=== PATIENT | female | born 1970 | race African-American/Black ===

== ENCOUNTER 2021-12-06 05:43 | Inpatient (IN) ==
[2021-12-06 06:53] LABS: INR 0.9; PT Patient Result 10.4 SECS (10.1-12.1)
[2021-12-06] MEDS ORDERED: SODIUM CHLORIDE 0.45% 1,000 ML IV SCH (07:00)
[2021-12-06] MEDS ORDERED: DIAZEPAM 5 MG TABLET PO ONE (08:30)
[2021-12-06] MEDS: SODIUM CHLORIDE 0.45% 500 ML IV SCH (08:33)
[2021-12-06] MEDS ORDERED: LEVOFLOXACIN INJ 500 MG/100 ML PREMIX IV ONE (09:00)
[2021-12-06] MEDS ORDERED: MIDAZOLAM 2 MG/2 ML VIAL ONE ×2 (10:31→11:52)
[2021-12-06] MEDS ORDERED: fentaNYL 100 MCG/2 ML VIAL ONE (10:31)
[2021-12-06] MEDS ORDERED: diphenhydrAMINE 50 MG/1 ML VIAL IV ONE (10:55)
[2021-12-06] MEDS ORDERED: diphenhydrAMINE 50 MG/1 ML VIAL ONE (10:55)
[2021-12-06] MEDS ORDERED: VANCOMYCIN 1,000 MG VIAL ONE (10:57)
[2021-12-06] MEDS ORDERED: MIDAZOLAM 2 MG/2 ML VIAL IV ONE (11:15)
[2021-12-06] MEDS ORDERED: fentaNYL 100 MCG/2 ML VIAL IV ONE (11:17)
[2021-12-06] MEDS ORDERED: VANCOMYCIN INJ 1,000 MG in SODIUM CHLORIDE 0.9% 250 ML IV ONE (11:58)
[2021-12-06] MEDS ORDERED: ONDANSETRON 4 MG/2 ML VIAL IV STA (13:41)
[2021-12-06] MEDS ORDERED: ONDANSETRON 4 MG/2 ML VIAL ONE (13:42)
[2021-12-06] MEDS ORDERED: KETOROLAC 30 MG/1 ML VIAL IM STA (14:01)
[2021-12-06] MEDS ORDERED: SODIUM CHLORIDE 0.9% 500 ML IV ONE (14:58)
[2021-12-06] MEDS ORDERED: diphenhydrAMINE 50 MG/1 ML VIAL IV PRN (16:14)
[2021-12-06] MEDS ORDERED: ONDANSETRON 4 MG/2 ML VIAL IV PRN (16:14)
[2021-12-06] MEDS: SODIUM CHLORIDE 0.9% 1,000 ML IV SCH (16:40)
[2021-12-06] MEDS: cefTRIAXone 1,000 MG in SODIUM CHLORIDE 0.9% 100 ML IV SCH (17:45)
[2021-12-06] MEDS: ACETAMINOPHEN 325 MG TABLET PO SCH ×2 (17:45→22:46)
[2021-12-06] MEDS: oxyCODONE/ACETAMINOPHEN 5-325 MG TABLET PO PRN (17:46)
[2021-12-06] MEDS: SIMETHICONE CHEW 125 MG TABLET PO SCH ×2 (17:46→21:28)
[2021-12-06 18:02] LABS: Basophils % 0.2 % (0.0-0.8); Hematocrit 32.4 VOL% (35.7-47.0); Hemoglobin 10.8 GM/DL (12.0-16.0); Immature Granulocytes % 0.6 %; Immature Granulocytes Absolute 0.08 #; Lymphocytes # 0.5 10*3/uL (1.4-4.0); Lymphocytes % 3.1 % (21.3-54.2); Mean Corpuscular HGB Conc 33.3 GM/DL (32-36); Mean Corpuscular Volume 93.4 FL (87-102); Mean Platelet Volume 9.4 FL (9.6-12.0); Monocytes # 0.4 10*3/uL (0.11-0.8); Monocytes % 2.7 % (1.7-12.7); Neutrophils % 93.4 % (38.7-73.9); Platelet Count 259 T/CUMM (130-400); Red Blood Count 3.47 MC/CUMM (3.8-5.5); Red Cell Distribution Width 13.4 % (9.3-17.3); White Blood Count 14.4 T/CUMM (4-12)
[2021-12-06 18:23] LABS: Band Neutrophils 5 % (0-10); Lymphocytes 5 % (20-55); Total Cells Counted 100
[2021-12-06 18:24] LABS: Platelet Estimate Adequate
[2021-12-06 19:13] LABS: Calcium 7.8 MG/DL (8.5-10.1); Osmolality,Calculated 283.3 MOS/KG (273-304); Potassium 2.7 MMOL/L (3.5-5.1)
[2021-12-06 19:24] LABS: Calcium 8.4 MG/DL (8.5-10.1); Carbon Dioxide 28 MMOL/L (21-32); Chloride 104 MMOL/L (98-107); Glucose 162 MG/DL (74-106); Sodium 140 MMOL/L (136-145)
[2021-12-06 19:45] LABS: Blood Urea Nitrogen 18 MG/DL (7-18); Osmolality,Calculated 284.4 MOS/KG (273-304)
[2021-12-06] MEDS: ANASTROZOLE 1 MG TABLET PO SCH (21:28)
[2021-12-06] MEDS: DOCUSATE SODIUM 100 MG CAPSULE PO SCH (21:28)
[2021-12-06] MEDS ORDERED: MAGNESIUM SULF RIDER 2 GM/50 ML PREMIX IV PRN (21:54)
[2021-12-06] MEDS ORDERED: MAGNESIUM SULF RIDER 4 GM/100 ML PREMIX IV PRN (21:54)
[2021-12-07] MEDS: SODIUM CHLORIDE 0.9% 1,000 ML IV SCH ×3 (01:08→20:44)
[2021-12-07] MEDS: ACETAMINOPHEN 325 MG TABLET PO SCH ×3 (05:14→18:06)
[2021-12-07] MEDS: oxyCODONE/ACETAMINOPHEN 5-325 MG TABLET PO PRN ×2 (05:24→12:23)
[2021-12-07 05:49] LABS: Basophils # 0.1 10*3/uL (0.0-0.2); Basophils % 0.4 % (0.0-0.8); Eosinophils # 0.1 10*3/uL (0.0-0.87); Eosinophils % 0.7 % (0.00-10.9); Immature Granulocytes % 0.6 %; Lymphocytes # 0.8 10*3/uL (1.4-4.0); Lymphocytes % 4.8 % (21.3-54.2); Mean Corpuscular HGB Conc 32.4 GM/DL (32-36); Mean Corpuscular Volume 93.7 FL (87-102); Mean Platelet Volume 9.3 FL (9.6-12.0); Monocytes # 1.3 10*3/uL (0.11-0.8); Monocytes % 7.9 % (1.7-12.7); Neutrophils % 85.6 % (38.7-73.9); Platelet Count 258 T/CUMM (130-400); Red Blood Count 3.63 MC/CUMM (3.8-5.5); Red Cell Distribution Width 13.5 % (9.3-17.3); White Blood Count 16.2 T/CUMM (4-12)
[2021-12-07 06:16] LABS: Calcium 8.9 MG/DL (8.5-10.1); Osmolality,Calculated 281.4 MOS/KG (273-304); Potassium 3.1 MMOL/L (3.5-5.1)
[2021-12-07 06:17] LABS: Lymphocytes 10 % (20-55); Platelet Estimate Adequate; Total Cells Counted 100
[2021-12-07] MEDS ORDERED: POTASSIUM CHLORIDE 20 MEQ TABLET PO ONE (06:44)
[2021-12-07] MEDS ORDERED: MAGNESIUM SULF RIDER 4 GM/100 ML PREMIX IV PRN (07:19)
[2021-12-07] MEDS ORDERED: MAGNESIUM SULF RIDER 2 GM/50 ML PREMIX IV PRN (07:19)
[2021-12-07] MEDS: SODIUM CHLORIDE 0.45% 500 ML IV SCH (08:33)
[2021-12-07] MEDS: DOCUSATE SODIUM 100 MG CAPSULE PO SCH ×2 (09:02→20:42)
[2021-12-07] MEDS: SIMETHICONE CHEW 125 MG TABLET PO SCH ×4 (09:02→20:42)
[2021-12-07] MEDS: OLMESARTAN 20 MG TABLET PO SCH (15:14)
[2021-12-07] MEDS: cefTRIAXone 1,000 MG in SODIUM CHLORIDE 0.9% 100 ML IV SCH (18:07)
[2021-12-07] MEDS: ANASTROZOLE 1 MG TABLET PO SCH (20:42)
[2021-12-08] MEDS: ACETAMINOPHEN 325 MG TABLET PO SCH ×4 (00:06→17:02)
[2021-12-08] MEDS: SIMVASTATIN 10 MG TABLET PO SCH ×2 (00:06→20:32)
[2021-12-08] MEDS: HYDROmorphone 1 MG/1 ML SYRINGE IV PRN ×2 (00:12→20:32)
[2021-12-08] MEDS: SODIUM CHLORIDE 0.9% 1,000 ML IV SCH ×4 (05:45→16:18)
[2021-12-08 05:48] LABS: Basophils # 0.1 10*3/uL (0.0-0.2); Basophils % 0.5 % (0.0-0.8); Eosinophils # 0.2 10*3/uL (0.0-0.87); Eosinophils % 1.8 % (0.00-10.9); Hematocrit 33.1 VOL% (35.7-47.0); Hemoglobin 10.7 GM/DL (12.0-16.0); Immature Granulocytes % 0.4 %; Immature Granulocytes Absolute 0.04 #; Lymphocytes # 1.4 10*3/uL (1.4-4.0); Lymphocytes % 13.6 % (21.3-54.2); Mean Corpuscular HGB Conc 32.3 GM/DL (32-36); Mean Corpuscular Volume 95.1 FL (87-102); Monocytes % 10.4 % (1.7-12.7); Neutrophils % 73.3 % (38.7-73.9); Platelet Count 242 T/CUMM (130-400); Red Blood Count 3.48 MC/CUMM (3.8-5.5); Red Cell Distribution Width 13.7 % (9.3-17.3)
[2021-12-08 06:11] LABS: Calcium 8.3 MG/DL (8.5-10.1); Osmolality,Calculated 273.5 MOS/KG (273-304); Potassium 3.3 MMOL/L (3.5-5.1)
[2021-12-08] MEDS: OLMESARTAN 20 MG TABLET PO SCH (08:50)
[2021-12-08] MEDS: SIMETHICONE CHEW 125 MG TABLET PO SCH ×5 (08:50→20:32)
[2021-12-08] MEDS: DOCUSATE SODIUM 100 MG CAPSULE PO SCH ×2 (08:50→20:32)
[2021-12-08] MEDS ORDERED: POTASSIUM CHLORIDE 20 MEQ TABLET PO ONE (09:00)
[2021-12-08] MEDS ORDERED: OLMESARTAN 20 MG TABLET PO ONE (15:00)
[2021-12-08] MEDS: cefTRIAXone 1,000 MG in SODIUM CHLORIDE 0.9% 100 ML IV SCH (17:02)
[2021-12-08] MEDS: CALCIUM CARBONATE CHEW 500 MG TABLET PO PRN (19:14)
[2021-12-08] MEDS: ANASTROZOLE 1 MG TABLET PO SCH (20:32)
[2021-12-09] MEDS: SODIUM CHLORIDE 0.9% 1,000 ML IV SCH ×2 (00:10→10:19)
[2021-12-09] MEDS: ACETAMINOPHEN 325 MG TABLET PO SCH ×3 (01:09→04:47)
[2021-12-09] MEDS: CALCIUM CARBONATE CHEW 500 MG TABLET PO PRN (03:53)
[2021-12-09 05:57] LABS: Calcium 8.5 MG/DL (8.5-10.1); Osmolality,Calculated 278.3 MOS/KG (273-304)
[2021-12-09 06:40] LABS: Basophils % 0.4 % (0.0-0.8); Eosinophils # 0.1 10*3/uL (0.0-0.87); Eosinophils % 0.7 % (0.00-10.9); Hematocrit 33.1 VOL% (35.7-47.0); Hemoglobin 10.8 GM/DL (12.0-16.0); Immature Granulocytes % 0.5 %; Immature Granulocytes Absolute 0.05 #; Lymphocytes # 1.5 10*3/uL (1.4-4.0); Lymphocytes % 14.7 % (21.3-54.2); Mean Corpuscular HGB Conc 32.6 GM/DL (32-36); Mean Corpuscular Volume 94.3 FL (87-102); Mean Platelet Volume 10.2 FL (9.6-12.0); Monocytes # 1.1 10*3/uL (0.11-0.8); Monocytes % 11.3 % (1.7-12.7); Neutrophils % 72.4 % (38.7-73.9); Platelet Count 235 T/CUMM (130-400); Red Blood Count 3.51 MC/CUMM (3.8-5.5); Red Cell Distribution Width 13.5 % (9.3-17.3); White Blood Count 10.1 T/CUMM (4-12)
[2021-12-09] MEDS: DOCUSATE SODIUM 100 MG CAPSULE PO SCH (08:57)
[2021-12-09] MEDS ORDERED: OLMESARTAN 20 MG TABLET PO SCH (09:00)
[2021-12-09 09:07] VITALS: BP 154/78
[2021-12-09] MEDS: SIMETHICONE CHEW 125 MG TABLET PO SCH (10:19)
== END 2021-12-09 11:06 | disposition home or self-care (01) | DRG 690 ==
LOC: N.RAD 05:43 → N.5E 05:43 → N.SDSINP 05:45 → N.5E 16:18
PROVIDERS: ADMIT Surgery; ATTEND Surgery

== ENCOUNTER 2021-12-19 09:29 | Inpatient (IN) ==
[2021-12-04 10:42] LABS: Basophils # 0.1 10*3/uL (0.0-0.2); Basophils % 0.7 % (0.0-0.8); Eosinophils # 0.2 10*3/uL (0.0-0.87); Eosinophils % 2.2 % (0.00-10.9); Hematocrit 38.6 VOL% (35.7-47.0); Hemoglobin 12.7 GM/DL (12.0-16.0); Immature Granulocytes % 0.1 %; Immature Granulocytes Absolute 0.01 #; Lymphocytes # 1.9 10*3/uL (1.4-4.0); Lymphocytes % 27.9 % (21.3-54.2); Mean Corpuscular HGB Conc 32.9 GM/DL (32-36); Mean Corpuscular Volume 93.7 FL (87-102); Mean Platelet Volume 8.8 FL (9.6-12.0); Monocytes # 0.6 10*3/uL (0.11-0.8); Monocytes % 8.3 % (1.7-12.7); Neutrophils % 60.8 % (38.7-73.9); Platelet Count 365 T/CUMM (130-400); Red Blood Count 4.12 MC/CUMM (3.8-5.5); Red Cell Distribution Width 13.3 % (9.3-17.3)
[2021-12-04 11:19] LABS: Albumin 3.9 G/DL (3.4-5.0); Bilirubin,Total 0.5 MG/DL (0.20-1.00); Calcium 9.9 MG/DL (8.5-10.1); Osmolality,Calculated 273.7 MOS/KG (273-304); Potassium 3.6 MMOL/L (3.5-5.1); Total Protein 7.8 G/DL (6.4-8.2)
[~2021-12-19 09:29] MED LIST: cefTRIAXone 1,000 MG VIAL ONE; cefTRIAXone 1,000 MG in SODIUM CHLORIDE 0.9% 100 ML IV ONE
[2021-12-19] MEDS ORDERED: DIAZEPAM 5 MG TABLET PO ONE (10:37)
[2021-12-19] MEDS ORDERED: SCOPOLAMINE 1.5 MG PATCH TRANSDERM ONE (10:37)
[2021-12-19] MEDS ORDERED: FAMOTIDINE 20 MG TABLET PO ONE (10:37)
[2021-12-19] MEDS ORDERED: LACTATED RINGERS 1,000 ML IV SCH ×2 (11:00→18:00)
[2021-12-19] MEDS ORDERED: LORazepam 0.5 MG TABLET ONE (13:53)
[2021-12-19] MEDS ORDERED: LORazepam 0.5 MG TABLET PO ONE (13:54)
[2021-12-19] MEDS ORDERED: MIDAZOLAM 2 MG/2 ML VIAL ONE (14:20)
[2021-12-19] MEDS ORDERED: fentaNYL 100 MCG/2 ML VIAL ONE ×2 (14:20→15:47)
[2021-12-19] MEDS ORDERED: SEVOFLURANE 1 UNIT/15 MINUTE INH ONE (15:12)
[2021-12-19] MEDS ORDERED: SUCCINYLCHOLINE 200 MG/10 ML VIAL ONE (15:12)
[2021-12-19] MEDS ORDERED: ONDANSETRON 4 MG/2 ML VIAL ONE (15:12)
[2021-12-19] MEDS ORDERED: ROCURONIUM 50 MG/5 ML VIAL IV ONE (15:12)
[2021-12-19] MEDS ORDERED: propofoL 200 MG/20 ML VIAL IV ONE (15:12)
[2021-12-19] MEDS ORDERED: LIDOCAINE 2% 5 ML VIAL ONE (15:12)
[2021-12-19] MEDS ORDERED: PHENYLEPHRINE 1 MG/10 ML SYRINGE IV ONE (15:25)
[2021-12-19] MEDS ORDERED: DEXMEDETOMIDINE 200 MCG/2 ML VIAL ONE (16:42)
[2021-12-19] MEDS ORDERED: ROPIVACAINE 0.5% 30 ML VIAL ONE (17:15)
[2021-12-19] MEDS ORDERED: SIMETHICONE CHEW 125 MG TABLET PO PRN (17:36)
[2021-12-19] MEDS ORDERED: HYDROmorphone 1 MG/1 ML SYRINGE IV PRN (17:36)
[2021-12-19] MEDS ORDERED: hydrALAZINE 25 MG TABLET PO PRN (17:39)
[2021-12-19] MEDS: HYDROmorphone 1 MG/1 ML SYRINGE IV PRN ×4 (17:50→18:20)
[2021-12-19] MEDS ORDERED: ONDANSETRON 4 MG/2 ML VIAL IV PRN (17:54)
[2021-12-19] MEDS ORDERED: ALBUTEROL/IPRATROPIUM 3 ML NEB RESP TX PRN (18:27)
[2021-12-19 19:07] LABS: Basophils # 0.1 10*3/uL (0.0-0.2); Basophils % 0.3 % (0.0-0.8); Eosinophils # 0.1 10*3/uL (0.0-0.87); Eosinophils % 0.3 % (0.00-10.9); Hematocrit 34.1 VOL% (35.7-47.0); Immature Granulocytes % 0.5 %; Lymphocytes # 1.7 10*3/uL (1.4-4.0); Mean Corpuscular HGB Conc 32.3 GM/DL (32-36); Mean Corpuscular Volume 93.9 FL (87-102); Mean Platelet Volume 8.9 FL (9.6-12.0); Monocytes # 1.1 10*3/uL (0.11-0.8); Monocytes % 5.2 % (1.7-12.7); Neutrophils % 85.7 % (38.7-73.9); Platelet Count 428 T/CUMM (130-400); Red Blood Count 3.63 MC/CUMM (3.8-5.5); Red Cell Distribution Width 13.8 % (9.3-17.3); White Blood Count 20.6 T/CUMM (4-12)
[2021-12-19] MEDS: ACETAMINOPHEN 325 MG TABLET PO SCH (19:30)
[2021-12-19 20:11] LABS: Band Neutrophils 4 % (0-10); Eosinophils 1 % (0-10); Lymphocytes 8 % (20-55); Platelet Estimate Increased; Polychromasia Slight; Total Cells Counted 100
[2021-12-19] MEDS: SODIUM CHLORIDE 0.9% 1,000 ML IV SCH (20:20)
[2021-12-19] MEDS: ONDANSETRON 4 MG/2 ML VIAL IV PRN (20:27)
[2021-12-19] MEDS: DOCUSATE SODIUM 100 MG CAPSULE PO SCH (20:36)
[2021-12-19 21:57] LABS: Calcium 8.7 MG/DL (8.5-10.1)
[2021-12-19 22:00] LABS: Potassium 4.3 MMOL/L (3.5-5.1)
[2021-12-20] MEDS: MORPHINE 2 MG/1 ML SYRINGE IV PRN ×4 (01:15→23:36)
[2021-12-20] MEDS: ACETAMINOPHEN 325 MG TABLET PO SCH ×5 (01:15→23:37)
[2021-12-20] MEDS: SODIUM CHLORIDE 0.9% 1,000 ML IV SCH ×2 (02:14→13:31)
[2021-12-20 05:54] LABS: Basophils % 0.2 % (0.0-0.8); Hematocrit 31.9 VOL% (35.7-47.0); Hemoglobin 10.2 GM/DL (12.0-16.0); Immature Granulocytes % 0.6 %; Immature Granulocytes Absolute 0.13 #; Lymphocytes # 1.3 10*3/uL (1.4-4.0); Lymphocytes % 6.1 % (21.3-54.2); Mean Corpuscular Volume 94.9 FL (87-102); Mean Platelet Volume 10.1 FL (9.6-12.0); Monocytes # 1.3 10*3/uL (0.11-0.8); Monocytes % 6.5 % (1.7-12.7); Neutrophils % 86.6 % (38.7-73.9); Platelet Count 333 T/CUMM (130-400); Red Blood Count 3.36 MC/CUMM (3.8-5.5); Red Cell Distribution Width 13.9 % (9.3-17.3); White Blood Count 20.6 T/CUMM (4-12)
[2021-12-20 06:15] LABS: Calcium 8.9 MG/DL (8.5-10.1); Osmolality,Calculated 277.7 MOS/KG (273-304); Potassium 4.2 MMOL/L (3.5-5.1)
[2021-12-20 06:16] LABS: Hypochromia Slight; Lymphocytes 7 % (20-55); Microcytosis Slight; Platelet Estimate Adequate; Total Cells Counted 100
[2021-12-20] MEDS ORDERED: MAGNESIUM SULF RIDER 4 GM/100 ML PREMIX IV PRN (07:06)
[2021-12-20] MEDS ORDERED: MAGNESIUM SULF RIDER 2 GM/50 ML PREMIX IV PRN (07:06)
[2021-12-20] MEDS: PIPERACILLIN/TAZOBACTAM 3,375 MG in SODIUM CHLORIDE 0.9% 100 ML IV SCH ×3 (08:40→23:38)
[2021-12-20] MEDS: DOCUSATE SODIUM 100 MG CAPSULE PO SCH ×2 (08:40→20:20)
[2021-12-20] MEDS: ANASTROZOLE 1 MG TABLET PO SCH (08:40)
[2021-12-20] MEDS ORDERED: cefTRIAXone 1,000 MG in SODIUM CHLORIDE 0.9% 100 ML IV SCH (09:00)
[2021-12-20] MEDS: ONDANSETRON 4 MG/2 ML VIAL IV PRN ×2 (16:09→20:24)
[2021-12-20] MEDS: oxyCODONE/ACETAMINOPHEN 5-325 MG TABLET PO PRN (20:22)
[2021-12-21] MEDS: oxyCODONE/ACETAMINOPHEN 5-325 MG TABLET PO PRN ×2 (02:13→09:41)
[2021-12-21] MEDS: ACETAMINOPHEN 325 MG TABLET PO SCH ×3 (05:37→18:48)
[2021-12-21] MEDS: SODIUM CHLORIDE 0.9% 1,000 ML IV SCH ×4 (05:43→18:47)
[2021-12-21 05:49] LABS: Basophils % 0.3 % (0.0-0.8); Eosinophils # 0.2 10*3/uL (0.0-0.87); Eosinophils % 1.3 % (0.00-10.9); Hematocrit 29.1 VOL% (35.7-47.0); Hemoglobin 9.5 GM/DL (12.0-16.0); Immature Granulocytes % 0.4 %; Immature Granulocytes Absolute 0.05 #; Lymphocytes % 7.1 % (21.3-54.2); Mean Corpuscular HGB Conc 32.6 GM/DL (32-36); Mean Corpuscular Volume 95.4 FL (87-102); Mean Platelet Volume 9.2 FL (9.6-12.0); Monocytes # 1.3 10*3/uL (0.11-0.8); Monocytes % 9.6 % (1.7-12.7); Neutrophils % 81.3 % (38.7-73.9); Platelet Count 347 T/CUMM (130-400); Red Blood Count 3.05 MC/CUMM (3.8-5.5); White Blood Count 13.6 T/CUMM (4-12)
[2021-12-21 06:20] LABS: Calcium 9.1 MG/DL (8.5-10.1); Osmolality,Calculated 278.4 MOS/KG (273-304); Potassium 3.6 MMOL/L (3.5-5.1)
[2021-12-21] MEDS: DOCUSATE SODIUM 100 MG CAPSULE PO SCH ×2 (09:01→20:57)
[2021-12-21] MEDS: ANASTROZOLE 1 MG TABLET PO SCH (09:02)
[2021-12-21] MEDS: PIPERACILLIN/TAZOBACTAM 3,375 MG in SODIUM CHLORIDE 0.9% 100 ML IV SCH ×2 (09:04→16:20)
[2021-12-21] MEDS: MORPHINE 2 MG/1 ML SYRINGE IV PRN ×3 (11:42→21:02)
[2021-12-21] MEDS: traMADol 50 MG TABLET PO PRN (22:36)
[2021-12-21] MEDS: ONDANSETRON 4 MG/2 ML VIAL IV PRN (22:37)
[2021-12-22] MEDS: ACETAMINOPHEN 325 MG TABLET PO SCH ×4 (00:04→18:08)
[2021-12-22] MEDS: PIPERACILLIN/TAZOBACTAM 3,375 MG in SODIUM CHLORIDE 0.9% 100 ML IV SCH ×3 (00:04→16:45)
[2021-12-22] MEDS: SODIUM CHLORIDE 0.9% 1,000 ML IV SCH ×3 (01:48→22:35)
[2021-12-22 05:25] LABS: Basophils # 0.1 10*3/uL (0.0-0.2); Basophils % 0.3 % (0.0-0.8); Eosinophils # 0.5 10*3/uL (0.0-0.87); Eosinophils % 2.6 % (0.00-10.9); Hematocrit 28.9 VOL% (35.7-47.0); Hemoglobin 9.2 GM/DL (12.0-16.0); Immature Granulocytes % 0.7 %; Immature Granulocytes Absolute 0.13 #; Lymphocytes % 5.5 % (21.3-54.2); Mean Corpuscular HGB Conc 31.8 GM/DL (32-36); Mean Corpuscular Volume 95.4 FL (87-102); Mean Platelet Volume 10.4 FL (9.6-12.0); Monocytes # 1.8 10*3/uL (0.11-0.8); Monocytes % 10.1 % (1.7-12.7); Neutrophils % 80.8 % (38.7-73.9); Platelet Count 303 T/CUMM (130-400); Red Blood Count 3.03 MC/CUMM (3.8-5.5); Red Cell Distribution Width 13.9 % (9.3-17.3); White Blood Count 17.6 T/CUMM (4-12)
[2021-12-22 05:51] LABS: Calcium 8.4 MG/DL (8.5-10.1); Osmolality,Calculated 277.4 MOS/KG (273-304); Potassium 3.6 MMOL/L (3.5-5.1)
[2021-12-22] MEDS: DOCUSATE SODIUM 100 MG CAPSULE PO SCH ×2 (08:42→20:52)
[2021-12-22] MEDS: ANASTROZOLE 1 MG TABLET PO SCH (08:42)
[2021-12-22] MEDS ORDERED: MAGNESIUM HYDROXIDE SUSP 30 ML UDCUP PO ONE (14:00)
[2021-12-22] MEDS: traMADol 50 MG TABLET PO PRN (14:31)
[2021-12-22] MEDS: ONDANSETRON 4 MG/2 ML VIAL IV PRN (14:33)
[2021-12-22] MEDS: POLYETHYLENE GLYCOL POWDER 17 GM PACK PO SCH (20:52)
[2021-12-23] MEDS: ALBUTEROL/IPRATROPIUM 3 ML NEB RESP TX SCH ×5 (01:00→23:05)
[2021-12-23] MEDS: ACETAMINOPHEN 325 MG TABLET PO SCH ×5 (02:04→23:32)
[2021-12-23] MEDS: PIPERACILLIN/TAZOBACTAM 3,375 MG in SODIUM CHLORIDE 0.9% 100 ML IV SCH ×3 (02:04→16:10)
[2021-12-23 06:50] LABS: Basophils % 0.3 % (0.0-0.8); Eosinophils # 0.4 10*3/uL (0.0-0.87); Eosinophils % 2.4 % (0.00-10.9); Hemoglobin 9.4 GM/DL (12.0-16.0); Immature Granulocytes % 0.9 %; Immature Granulocytes Absolute 0.13 #; Lymphocytes # 0.9 10*3/uL (1.4-4.0); Lymphocytes % 6.2 % (21.3-54.2); Mean Corpuscular HGB Conc 32.4 GM/DL (32-36); Mean Corpuscular Volume 94.5 FL (87-102); Mean Platelet Volume 11.4 FL (9.6-12.0); Monocytes # 1.5 10*3/uL (0.11-0.8); Monocytes % 9.8 % (1.7-12.7); Neutrophils % 80.4 % (38.7-73.9); Platelet Count 238 T/CUMM (130-400); Red Blood Count 3.07 MC/CUMM (3.8-5.5); Red Cell Distribution Width 14.1 % (9.3-17.3); White Blood Count 14.8 T/CUMM (4-12)
[2021-12-23 07:14] LABS: Calcium 8.7 MG/DL (8.5-10.1); Osmolality,Calculated 276.4 MOS/KG (273-304); Potassium 3.6 MMOL/L (3.5-5.1)
[2021-12-23] MEDS ORDERED: LINACLOTIDE 145 MCG CAPSULE PO SCH (07:30)
[2021-12-23] MEDS: SODIUM CHLORIDE 0.9% 1,000 ML IV SCH ×2 (07:49→15:50)
[2021-12-23] MEDS: traMADol 50 MG TABLET PO PRN (07:53)
[2021-12-23] MEDS: DOCUSATE SODIUM 100 MG CAPSULE PO SCH ×2 (08:23→20:43)
[2021-12-23] MEDS: OLMESARTAN 20 MG TABLET PO SCH (08:23)
[2021-12-23] MEDS: ANASTROZOLE 1 MG TABLET PO SCH (08:23)
[2021-12-23] MEDS: hydroCHLOROthiazide 25 MG TABLET PO SCH (08:23)
[2021-12-23] MEDS: POLYETHYLENE GLYCOL POWDER 17 GM PACK PO SCH (08:23)
[2021-12-23] MEDS ORDERED: CITALOPRAM 20 MG TABLET PO SCH (09:00)
[2021-12-23] MEDS: busPIRone 5 MG TABLET PO SCH ×2 (10:18→16:10)
[2021-12-23] MEDS: MEROPENEM 500 MG in SODIUM CHLORIDE 0.9% 100 ML IV SCH (20:44)
[2021-12-23] MEDS ORDERED: OLMESARTAN 20 MG TABLET PO SCH (21:00)
[2021-12-23] MEDS ORDERED: hydroCHLOROthiazide 25 MG TABLET PO SCH (21:00)
[2021-12-23] MEDS ORDERED: LINEZOLID INJ 600 MG/300 ML PREMIX IV SCH (22:00)
[2021-12-23] MEDS: ONDANSETRON 4 MG/2 ML VIAL IV PRN (22:51)
[2021-12-23] MEDS ORDERED: METOCLOPRAMIDE 10 MG/2 ML VIAL IV ONE (23:39)
[2021-12-24] MEDS: ALBUTEROL/IPRATROPIUM 3 ML NEB RESP TX SCH ×8 (00:05→23:05)
[2021-12-24] MEDS: ACETAMINOPHEN 325 MG TABLET PO SCH ×5 (01:02→23:40)
[2021-12-24] MEDS ORDERED: ALPRAZolam 0.5 MG TABLET PO ONE (03:19)
[2021-12-24] MEDS: ONDANSETRON 4 MG/2 ML VIAL IV PRN (03:27)
[2021-12-24] MEDS: MEROPENEM 500 MG in SODIUM CHLORIDE 0.9% 100 ML IV SCH ×4 (03:58→20:40)
[2021-12-24 05:20] LABS: Basophils % 0.2 % (0.0-0.8); Eosinophils # 0.2 10*3/uL (0.0-0.87); Eosinophils % 1.9 % (0.00-10.9); Hematocrit 26.8 VOL% (35.7-47.0); Hemoglobin 8.8 GM/DL (12.0-16.0); Immature Granulocytes % 0.6 %; Immature Granulocytes Absolute 0.07 #; Lymphocytes # 1.1 10*3/uL (1.4-4.0); Lymphocytes % 9.1 % (21.3-54.2); Mean Corpuscular HGB Conc 32.8 GM/DL (32-36); Mean Corpuscular Volume 92.4 FL (87-102); Mean Platelet Volume 10.6 FL (9.6-12.0); Monocytes # 1.2 10*3/uL (0.11-0.8); Monocytes % 9.4 % (1.7-12.7); Neutrophils % 78.8 % (38.7-73.9); Platelet Count 318 T/CUMM (130-400); White Blood Count 12.4 T/CUMM (4-12)
[2021-12-24 05:38] LABS: Osmolality,Calculated 278.3 MOS/KG (273-304); Potassium 3.1 MMOL/L (3.5-5.1)
[2021-12-24] MEDS ORDERED: POTASSIUM CHLORIDE 20 MEQ TABLET PO ONE (07:06)
[2021-12-24] MEDS: OLMESARTAN 20 MG TABLET PO SCH (08:51)
[2021-12-24] MEDS: hydroCHLOROthiazide 25 MG TABLET PO SCH (08:52)
[2021-12-24] MEDS: DOCUSATE SODIUM 100 MG CAPSULE PO SCH ×2 (08:53→20:40)
[2021-12-24] MEDS: ANASTROZOLE 1 MG TABLET PO SCH (08:53)
[2021-12-24] MEDS: POLYETHYLENE GLYCOL POWDER 17 GM PACK PO SCH (08:55)
[2021-12-24] MEDS: carvediloL 12.5 MG TABLET PO SCH ×2 (09:40→20:40)
[2021-12-24] MEDS ORDERED: FUROSEMIDE 40 MG/4 ML VIAL IV ONE (09:40)
[2021-12-24] MEDS: LORazepam 1 MG TABLET PO PRN (21:49)
[2021-12-25] MEDS: MEROPENEM 500 MG in SODIUM CHLORIDE 0.9% 100 ML IV SCH ×4 (02:14→20:55)
[2021-12-25] MEDS: ALBUTEROL/IPRATROPIUM 3 ML NEB RESP TX SCH ×5 (03:15→19:22)
[2021-12-25 05:47] LABS: Basophils # 0.1 10*3/uL (0.0-0.2); Basophils % 0.4 % (0.0-0.8); Eosinophils # 0.6 10*3/uL (0.0-0.87); Eosinophils % 5.1 % (0.00-10.9); Hematocrit 25.6 VOL% (35.7-47.0); Hemoglobin 8.7 GM/DL (12.0-16.0); Immature Granulocytes % 0.3 %; Immature Granulocytes Absolute 0.04 #; Lymphocytes # 1.7 10*3/uL (1.4-4.0); Mean Corpuscular Volume 89.2 FL (87-102); Mean Platelet Volume 9.8 FL (9.6-12.0); Monocytes # 1.3 10*3/uL (0.11-0.8); Monocytes % 11.6 % (1.7-12.7); NRBC # 0.02 10*3/uL; Neutrophils % 67.6 % (38.7-73.9); Platelet Count 391 T/CUMM (130-400); Red Blood Count 2.87 MC/CUMM (3.8-5.5); Red Cell Distribution Width 13.6 % (9.3-17.3); White Blood Count 11.5 T/CUMM (4-12)
[2021-12-25 06:08] LABS: Calcium 9.4 MG/DL (8.5-10.1); Osmolality,Calculated 278.3 MOS/KG (273-304); Potassium 2.9 MMOL/L (3.5-5.1)
[2021-12-25] MEDS: ACETAMINOPHEN 325 MG TABLET PO SCH ×4 (06:21→23:51)
[2021-12-25] MEDS ORDERED: POTASSIUM CHLORIDE 20 MEQ TABLET PO ONE (08:00)
[2021-12-25] MEDS: DOCUSATE SODIUM 100 MG CAPSULE PO SCH ×2 (11:03→20:50)
[2021-12-25] MEDS: carvediloL 12.5 MG TABLET PO SCH ×2 (11:03→20:50)
[2021-12-25] MEDS: OLMESARTAN 20 MG TABLET PO SCH (11:03)
[2021-12-25] MEDS: ANASTROZOLE 1 MG TABLET PO SCH (11:04)
[2021-12-25] MEDS: POTASSIUM CHLORIDE 20 MEQ TABLET PO SCH (11:04)
[2021-12-25] MEDS: hydroCHLOROthiazide 25 MG TABLET PO SCH (11:11)
[2021-12-25] MEDS: POLYETHYLENE GLYCOL POWDER 17 GM PACK PO SCH (11:14)
[2021-12-25] MEDS: LORazepam 1 MG TABLET PO PRN (21:54)
[2021-12-26] MEDS: ALBUTEROL/IPRATROPIUM 3 ML NEB RESP TX SCH ×4 (00:18→11:25)
[2021-12-26] MEDS: MEROPENEM 500 MG in SODIUM CHLORIDE 0.9% 100 ML IV SCH ×2 (03:22→08:38)
[2021-12-26 05:11] LABS: Basophils # 0.1 10*3/uL (0.0-0.2); Basophils % 0.6 % (0.0-0.8); Eosinophils # 0.6 10*3/uL (0.0-0.87); Eosinophils % 5.7 % (0.00-10.9); Hematocrit 24.7 VOL% (35.7-47.0); Hemoglobin 8.4 GM/DL (12.0-16.0); Immature Granulocytes % 0.5 %; Immature Granulocytes Absolute 0.05 #; Lymphocytes # 2.2 10*3/uL (1.4-4.0); Lymphocytes % 20.1 % (21.3-54.2); Mean Corpuscular Volume 88.8 FL (87-102); Mean Platelet Volume 9.4 FL (9.6-12.0); Monocytes # 1.3 10*3/uL (0.11-0.8); Monocytes % 12.3 % (1.7-12.7); NRBC # 0.02 10*3/uL; Neutrophils % 60.8 % (38.7-73.9); Platelet Count 412 T/CUMM (130-400); Red Blood Count 2.78 MC/CUMM (3.8-5.5); Red Cell Distribution Width 13.7 % (9.3-17.3); White Blood Count 10.9 T/CUMM (4-12)
[2021-12-26 05:35] LABS: Calcium 9.2 MG/DL (8.5-10.1); Osmolality,Calculated 279.3 MOS/KG (273-304); Potassium 3.4 MMOL/L (3.5-5.1)
[2021-12-26] MEDS: ACETAMINOPHEN 325 MG TABLET PO SCH (06:24)
[2021-12-26] MEDS: hydroCHLOROthiazide 25 MG TABLET PO SCH (08:38)
[2021-12-26] MEDS: carvediloL 12.5 MG TABLET PO SCH (08:38)
[2021-12-26] MEDS: ANASTROZOLE 1 MG TABLET PO SCH (08:38)
[2021-12-26] MEDS: OLMESARTAN 20 MG TABLET PO SCH (08:39)
[2021-12-26] MEDS: POTASSIUM CHLORIDE 20 MEQ TABLET PO SCH (08:39)
[2021-12-26] MEDS: DOCUSATE SODIUM 100 MG CAPSULE PO SCH (08:39)
[2021-12-26] MEDS: POLYETHYLENE GLYCOL POWDER 17 GM PACK PO SCH (08:40)
[2021-12-26 11:31] VITALS: BP 126/81
== END 2021-12-26 13:31 | disposition home or self-care (01) | DRG 659 ==
LOC: N.RAD 09:29 → N.SDSINP 09:31 → N.3E 17:36
PROVIDERS: ADMIT Surgery; ATTEND Surgery